=== PATIENT | female | born 1990 ===

== ENCOUNTER 2017-11-21 13:48 | Emergency (ER) | payer OTHER ==
[2017-11-21] MEDS ORDERED: NS 0.9% 1000 ML* 1,000 ML IV ONE (14:41)
--- NOTE | 2017-11-21 14:49 | RAD ---
INDICATION: Head injury. COMPARISON: There are no prior studies available for comparison. TECHNIQUE: Contiguous axial sections of the brain were obtained from the skull base to the vertex without contrast. FINDINGS: The ventricles, cisterns and sulci are within normal limits. No significant focal abnormality or mass effect is seen. There is no evidence for hemorrhage. No significant focal osseous abnormality is seen. The visualized portion of the paranasal sinuses and mastoid air cells appear clear. IMPRESSION: NO EVIDENCE FOR ACUTE INTRACRANIAL ABNORMALITY.
--- NOTE | 2017-11-21 15:07 | ED ---
Substance Abuse/Use - HPI Summary HPI Summary: Patient arrives with friends after smoking marijuana, falling backwards and hitting head. Friend states her eyes rolled back but patient states she did not have LOC. Otherwise healthy. Never had a head injury. No medications. Denies ETOH use on this day, but has been drinking this week. A&Ox3. Denies MÁRQUEZ , blurry vision/double vision, N/V. - History Of Current Complaint Chief Complaint: EDGeneral Stated Complaint: FALL,ETOH Time Seen by Provider: 11/21/17 13:51 Hx Obtained From: Patient ?: No Onset/Duration of Drug/ETOH Abuse: Hours Ingestion History: Type/Name Of Drug - marijuana Overdose Characteristics: Inhalation Timing Of Abuse: Binge Use Severity Initially: Mild Severity Currently: Mild Aggravating Factor(s): Nothing Alleviating Factor(s): Nothing Associated Signs And Symptoms: Negative - Risk Factor(s) Completed Suicide Risk Factors: Negative - Allergies/Home Medications Allergies/Adverse Reactions: Allergies Allergy/AdvReac Type Severity Reaction Status Date / Time No Known Allergies Allergy Verified 11/21/17 14:37 Home Medications: Home Medications NK [No Home Medications Reported] 11/21/17 [History Confirmed 11/21/17] PMH/Surg Hx/FS Hx/Imm Hx Previously Healthy: Yes - Immunization History Hx Pertussis Vaccination: No Immunizations Up to Date: Unable to Obtain/Confirm Infectious Disease History: No Infectious Disease History: Denies: Traveled Outside the [place] in Last 30 Days - Social History Occupation: Unemployed, Student Lives: Dormitory/Roommates Alcohol Use: Occasionally Hx Substance Use: Yes Substance Use Type: Reports: Marijuana Smoking Status (MU): Never Smoked Tobacco Review of Systems Constitutional: Negative Negative: Fever, Chills, Fatigue, Skin Diaphoresis Negative: Photophobia, Blurred Vision ENT: Negative Cardiovascular: Negative Respiratory: Negative Positive: no symptoms reported, see HPI Musculoskeletal: Negative Skin: Negative Neurological: Negative Psychological: Normal All Other Systems Reviewed And Are Negative: Yes Physical Exam Triage Information Reviewed: Yes Vital Signs On Initial Exam: Initial Vitals Temp Pulse Resp BP Pulse Ox 98.3 F 108 16 128/74 100 11/21/17 13:53 11/21/17 13:53 11/21/17 13:53 11/21/17 13:53 11/21/17 13:53 Vital Signs Reviewed: Yes Appearance: Positive: Well-Appearing, Well-Nourished Skin: Positive: Skin Color Reflects Adequate Perfusion Neck: Positive: Supple, No Lymphadenopathy Respiratory/Lung Sounds: Positive: Clear to Auscultation, Breath Sounds Present Cardiovascular: Positive: RRR, Pulses are Symmetrical in both Upper and Lower Extremities Musculoskeletal: Positive: Normal, Strength/ROM Intact Neurological: Positive: Speech Normal Psychiatric: Positive: Affect/Mood Appropriate AVPU Assessment: Alert Diagnostics - Vital Signs Vital Signs Temp Pulse Resp BP Pulse Ox 11/21/17 13:53 98.3 F 108 16 128/74 100 - Laboratory Lab Results: Lab Results 11/21/17 Range/Units 14:01 Serum Alcohol < 10 (<10) mg/dL Lab Statement: Any lab studies that have been ordered have been reviewed, and results considered in the medical decision making process. Course/Dx - Course Course Of Treatment: On arrival, she is sent to CT scan as she was under the influence at the time and we are unsure if she had LOC. CT brain shows no acute abnormalities. NS given. Patient tolerated well. Alcohol <10. She is given a safe ride back to campus through [employer]. - Diagnoses Differential Diagnosis/HQI/PQRI: Positive: Other - Marijuana use, head injury Provider Diagnoses: Head injury Discharge - Sign-Out/Discharge Documenting (check all that apply): Discharge/Admit/Transfer - Discharge Plan Condition: Stable Disposition: HOME Patient Education Materials: Head Injury (ED) Referrals: [facility] - [facility] [Primary Care Provider] - Additional Instructions: For any changing symptoms, return to the ED - Billing Disposition and Condition Condition: STABLE Disposition: HOME
[2017-11-21 16:49] VITALS: BP 112/65
== END 2017-11-21 16:30 | disposition home or self-care (01) ==
LOC: ED 13:48
DX: S09.90XA Unspecified injury of head, initial encounter (principal); W19.XXXA Unspecified fall, initial encounter; Y92.9 Unspecified place or not applicable; F12.90 Cannabis use, unspecified, uncomplicated
CPT/HCPCS: 36415; 70450; 80320; 99282; G0480